=== PATIENT | female | born 1995 | race Caucasian/White ===

== ENCOUNTER 2021-07-18 01:52 | Emergency (ER) | payer OTHER ==
[~2021-07-18] VITALS: Ht 170.2 cm; Wt 59.0 kg
[2021-07-18] MEDS ORDERED: FLUORESCEIN SODIUM 1 MG STRIP ONE (02:23)
[2021-07-18] MEDS ORDERED: TETRACAINE HCL 0.5% OPHT DROP 2 ML BOTTLE ONE (02:24)
[2021-07-18] MEDS: FLUORESCEIN SODIUM 1 MG STRIP OP ONE (02:24)
[2021-07-18] MEDS: TETRACAINE HCL 0.5% OPHT DROP 2 ML BOTTLE OP ONE (02:25)
--- NOTE | 2021-07-18 02:25 | NUR ---
Pt brought straight back to [facility] by plate and weld inspector adrian. Pt is crying with eyes shut and is incapable o0f opening them
--- NOTE | 2021-07-18 02:30 | NUR ---
EDMD Dr. Gomez at pt bedside for eval. Pt says she is in too much pain to open her eyes and needed to be guided to room. Pt is crying and distought because of her being practically blind. Dr. Gomez pulled some tetracane opthalmic solution out of his pocket and began dousing both of pts eyes with the opthalmic anethetic drops. There was an immediate improvement in pts condition right after applicaiton of othalmic drops. Pt states a marked decrease in level of pain and she is now able to slowly open eyes.
[2021-07-18] MEDS ORDERED: OXYC-128 PO (02:31)
[2021-07-18] MEDS ORDERED: OXYCODONE/APAP 5-325 MG TABLET ONE ×2 (02:39→02:45)
--- NOTE | 2021-07-18 02:40 | NUR ---
2 tablets of perecocet 5/325 given pt per EDMD order to better regulate her pain once othalmic analgeisc weres off. EDMD also stated that she will also go home with a scribt of the same pain killer.
[2021-07-18] MEDS: OXYCODONE/APAP 5-325 MG TABLET PO ONE (02:45)
--- NOTE | 2021-07-18 02:45 | NUR ---
Pt is DCed home with script for 20 percocets. Info was given about the prescribtion with certain does and dont. Pt was told to not drink alcohol with meds or drive or operate heavy machinery. Pt confirmed understanding of DC instructions. Pt otherwise healthy with no medical history. Pt is AAOx4, with good color, temp and appearance. VSS, PE WNL, lungs clear, RRR, normal s1s2, oxygenating and perfusing well, No s/sx of distress observed.
[2021-07-18 03:06] VITALS: BP 113/72
== END 2021-07-18 02:45 | disposition home or self-care (01) ==
LOC: ER 02:00
DX: H10.213 Acute toxic conjunctivitis, bilateral (principal); T49.8X5A Adverse effect of other topical agents, initial encounter; Y92.89 Other specified places as the place of occurrence of the external cause
CPT/HCPCS: A4663